=== PATIENT | male | born 1960 | race Two or more races ===

== ENCOUNTER → 2017-07-30 | Outpatient (CLI) | payer MEDICAID ==
[~2017-07-30] MED LIST: AMLO-512 PO; ASPI81TA42 PO; FERR-72 PO; FURO20 PO; GABA600T PO; GLIP10 PO; HYDR10TA31 PO; INSU100C3 SQ; LISI40TA4 PO; METO25 PO; PIOG45TA4 PO; SIMV-261 PO; TRAM100T28 PO
== END | disposition home or self-care (01) ==
LOC: RADPV 08:26
PROVIDERS: ATTEND Internal Medicine Nephrology
DX: N18.3 Chronic kidney disease, stage 3 (moderate) (principal)
CPT/HCPCS: 76770